=== PATIENT | female | born 1965 | race Caucasian/White ===

== ENCOUNTER 2023-08-28 20:15 | Emergency (ER) | payer MEDICARE ==
[~2023-08-28] VITALS: Ht 160 cm; Wt 109.9 kg
[2023-08-28 20:49] LABS: CLARITY,URINE TURBID (Clear); COLOR,URINE RED (Yellow); UA COLLECTION TYPE CLN CATCH MIDSTREAM
[2023-08-28 20:57] LABS: RBC,URINE TNTC /HPF (0-2)
[2023-08-28 20:58] LABS: BACTERIA,URINE NONE SEEN /HPF (Neg); SQUAMOUS EPITHELIAL CELL,UR FEW /LPF (FEW)
[2023-08-28 21:43] LABS: INR 0.9 INR; PROTHROMBIN TIME 9.8 SECONDS (9.0-12.0)
[2023-08-28 21:48] LABS: ALANINE AMINOTRANSFERASE 20 U/L (12-78); ALBUMIN 3.4 G/DL (3.4-5.0); ALKALINE PHOSPHATASE 59 IU/L (46-116); ANION GAP 6 (8-16); ASPARTATE AMINO TRANSFERASE 18 U/L (10-37); BILIRUBIN,TOTAL 0.3 MG/DL (0.1-1.0); BLOOD UREA NITROGEN 20 MG/DL (7-18); BUN/CREATININE RATIO 24.7 (10.0-20.0); CHLORIDE 104 MMOL/L (99-107); CREATININE 0.81 MG/DL (0.40-0.90); GLUCOSE 98 MG/DL (70-104); LIPASE 21 U/L (16-77); SODIUM 141 MMOL/L (135-145); TOTAL CARBON DIOXIDE 31.2 MMOL/L (24-32); TOTAL PROTEIN 6.9 G/DL (6.4-8.2); eCRCL 64 ML/MIN; eGFR 73 ML/MIN
[2023-08-28 21:52] LABS: BASOPHILS % (AUTO) 0.3 % (0-1); EOSINOPHILS # (AUTO) 0.2 X10'3 (0-0.9); EOSINOPHILS % (AUTO) 2.6 % (0-6); HEMATOCRIT 39.1 % (35.0-45.0); HEMOGLOBIN 13.1 g/dl (12.0-16.0); LYMPHOCYTES # (AUTO) 3.2 X10'3 (1.1-4.8); LYMPHOCYTES % (AUTO) 34.3 % (21-51); MEAN CORPUSCULAR HGB CONC 33.6 g/dL (33.0-36.5); MEAN CORPUSCULAR VOLUME 92.3 FL (78-98); MEAN PLATELET VOLUME 8.1 FL (7.4-10.4); MONOCYTES # (AUTO) 0.7 X10'3 (0-0.9); MONOCYTES % (AUTO) 7.5 % (2-12); NEUTROPHILS # (AUTO) 5.2 X10'3 (1.8-7.7); NEUTROPHILS % (AUTO) 55.3 % (42-75); PLATELET COUNT 393 X10'3 (140-440); RED BLOOD COUNT 4.24 X10'6 (4.20-5.60); RED CELL DISTRIBUTION WIDTH 14.5 % (11.5-14.5); WHITE BLOOD COUNT 9.4 X10'3 (4.5-11.0)
[2023-08-28] MEDS ORDERED: FLO0.4C PO (22:40)
[2023-08-28] MEDS ORDERED: ONDA-245 PO (22:40)
[2023-08-28] MEDS ORDERED: CEPH-585 PO (22:40)
[2023-08-28] MEDS: CefTRIAXone 1000mg IM Kit (w/lidocaine diluent) IM ONE (22:45)
[2023-08-28 22:52] VITALS: BP 151/99; PULSE 64; RESP 17; TEMP 98; O2SAT 96
== END 2023-08-28 22:55 | disposition home or self-care (01) ==
LOC: ER 20:15
DX: R31.9 Hematuria, unspecified (principal); N20.1 Calculus of ureter; Z88.1 Allergy status to other antibiotic agents; Z90.710 Acquired absence of both cervix and uterus
CPT/HCPCS: 36415; 74176; 80053; 81001; 83690; 85025; 85610; 87088; 96372; 99285; A6407; J0696

== ENCOUNTER 2024-12-15 21:05 | Emergency (ER) | payer MEDICARE ==
[~2024-12-15] VITALS: Ht 160 cm; Wt 104.0 kg
[~2024-12-15 21:05] MED LIST: ONDA-245 PO
[2024-12-15 21:38] VITALS: BP 155/85; PULSE 88; RESP 16; O2SAT 94
[2024-12-15] MEDS ORDERED: BUPR2TAB11 SL (23:36)
--- NOTE | 2024-12-15 23:40 | Physician Documentation ---
HPI ~ General Chief Complaint: Medication Request Stated Complaint: MED REQUEST Time Seen by MD: 23:17 Primary Medical Doctor: CHAVA MEDINA History of Present Illness HPI Comments Patient very pleasant 59-year-old female that presents to the emergency department for medication refill. Patient is a local primary care provider that prescribes her medication. Patient reports that she has seen at the branch every and feels her medications there. Patient reports that she did not fill her medication in time in the branch area are closed on the weekend. Patient also reports that there is a holiday coming up on Wednesday that we will cause an extended delay in her getting her medication. We will prescribe a short course of the patient's medication have her follow up with the primary care provider for additional medications or fill her existing prescription as prescribed by her primary care provider. Other symptoms reported at this time. Medication Reconciliation Allergies: Coded Allergies: tetracycline (Unverified Allergy, Unknown, 08/28/23) Scheduled Ondansetron 8mg ODT (Ondansetron Odt), 1 TAB PO Q6H Past Medical History Past Medical History: No Pertinent History Past Surgical History: hysterectomy Alcohol Use: None Drug Use: none Lives with: Family Lives In: Home Occupation: employed Review of Systems ROS As stated above in the HPI, otherwise all systems are reviewed and negative. Physical Exam Physical Exam Vital Signs: Temperature: 98.3, Heart Rate: 88, Respiratory Rate: 16, BP: 155/85, Pulse Oximetry: 94, Weight: 104.000 Physical Exam VITALS: Reviewed and as above. GENERAL: Alert, no apparent distress. HEENT: Normocephalic, atraumatic, PERRL, EOMI, dry mucosa, no erythema RESPIRATORY: Lungs clear, normal breath sounds, no respiratory distress. CHEST: No accessory muscle use, no retractions CV: Regular rate, rhythm, no edema, no murmur, No: JVD GI: Soft, non-tender, bowels sounds present, no rebound, guarding, or rigidity BACK: No CVA tenderness, or swelling MUSCULOSKELETAL No deformities, no edema SKIN: Warm and dry, no rash NEURO: Oriented x4, No motor or sensory deficit PSYCH: Normal mood and affect, no agitation Progress Results/Orders Results/Orders Vital Signs 12/15/24 21:38 Temp 98.3 Pulse 88 Resp 16 B/P (MAP) 155/85 Pulse Ox 94 Medical Decision Making Additional information obtaine: other Findings Medication refill. Patient has been provided education regarding this medication in the need to follow up with her primary care provider. Patient will return to the emergency department if she has any additional needs. Differential Dx:Considerations: Include: Adverse circumstances, Economic, Psychosocial, Medical services unavail., Medication refill, Medication non- compliance, Other Departure Disposition: 01 HOME / SELF CARE / HOMELESS Impression: Primary Impression: Medication refill Condition: Stable Discharge Instructions: Medicine Refill at the Emergency Department Referrals: NO PRIMARY CARE PROVIDER (PCP) Prescriptions Buprenorphine Hcl (Buprenorphine Hcl) 2 Mg Tab.subl 1 TAB SL Q12H PRN PRN for pain for 10 Days, #20 TAB Prov: REBECCA CASTILLO 12/15/24 Education Educated: Patient Educated regarding: diagnosis, treatment, need for follow up Signature Scribe Signature: A Attestation: Scribed for Rebecca Castillo by BEBETO Josue . 12/15/24 23:41 REBECCA CASTILLO Dec 15, 2024 23:40
[2024-12-15 23:47] VITALS: TEMP 98.3
[2024-12-15] MEDS: buprenorphine/naloxone 2-0.5mg sublingual tablet SL SCH (23:56)
== END 2024-12-16 | disposition home or self-care (01) ==
LOC: ER 21:05
DX: Z76.0 Encounter for issue of repeat prescription (principal); F11.90 Opioid use, unspecified, uncomplicated; Z90.710 Acquired absence of both cervix and uterus; Z88.1 Allergy status to other antibiotic agents; Z79.899 Other long term (current) drug therapy
CPT/HCPCS: 99283

== ENCOUNTER 2024-12-16 13:01 | Emergency (ER) | payer MEDICARE ==
[~2024-12-16] VITALS: Ht 160 cm; Wt 110.1 kg
[~2024-12-16 13:01] MED LIST changes: +BUPR2TAB11 SL
[2024-12-16 13:24] VITALS: TEMP 97
--- NOTE | 2024-12-16 14:18 | Physician Documentation ---
HPI ~ General Chief Complaint: Medication Request Stated Complaint: MED REQUEST Time Seen by MD: 14:08 OK to notify your PCP?: Yes Primary Medical Doctor: CHAVA MEDINA Source: patient Mode of Arrival: POV Exam Limitations: no limitations History of Present Illness HPI Comments Patient returns for refill of buprenorphine medication. 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 She is requesting for us to give her 4 pills of her medication to get her through the weekend. Medication Reconciliation Allergies: Coded Allergies: tetracycline (Unverified Allergy, Unknown, 12/16/24) Scheduled Ondansetron 8mg ODT (Ondansetron Odt), 1 TAB PO Q6H Scheduled PRN Buprenorphine Hcl (Buprenorphine Hcl), 1 TAB SL Q12H PRN PRN for pain Past Medical History Past Medical History: No Pertinent History Past Surgical History: hysterectomy Alcohol Use: None Drug Use: none Lives with: Family Lives In: Home Occupation: employed Review of Systems All Other Systems at this time: Reviewed and Negative Physical Exam Physical Exam Vital Signs: RN Vital Signs have been reviewed: Yes, Temperature: 97.0, Source: Temporal, Heart Rate: 87, Respiratory Rate: 20, BP: 130/86, Pulse Oximetry: 93, Weight: 110.100 Oxygen Flow Rate: 0 Pulse Oximetry Reflects: adequate oxygenation Physical Exam General: Alert, no distress. HEENT: No injection, moist mucous membranes. Neck: Full range of motion. Respiratory: No respiratory distress, equal chest rise and fall. Chest: No accessory muscle use. Cardiovascular: Regular rate and rhythm. Gastrointestinal: Nondistended. Extremities: Normal range of motion, no deformity. Neurologic: Oriented x4. Psychiatric: Normal mood and affect. Skin: Normal color, warm and dry. Progress Results/Orders Results/Orders Vital Signs 12/16/24 13:24 Temp 97.0 Pulse 87 Resp 20 B/P (MAP) 130/86 Pulse Ox 93 O2 Flow Rate 0 Medical Decision Making Additional information obtaine: old records Findings We discussed that we do not have pharmacy dispensing privileges and we are unable to dispense any medication especially controlled substance. I discussed that I would be willing to give her a 1 time dose while she is here in the department but unfortunately I can not give her any more doses to get her through the weekend. We also discussed that even if I prescribed to a different pharmacy all pharmacies are linked and will not fill this prescription due to her normal pharmacy already filling it. She understands and agrees the plan. Differential Dx:Considerations: Include: Adverse circumstances, Medical services unavail., Medication refill Departure Disposition: HOME / SELF CARE / HOMELESS Impression: Primary Impression: Medication refill Additional Impression: Pain Condition: Stable Discharge Instructions: Medicine Refill at the Emergency Department Additional Instructions: As discussed we are unable to dispense medication from our pharmacy to help get you through the weekend. We can give you 1 time dose while you were here. Referrals: NO PRIMARY CARE PROVIDER (PCP) Education Educated: Patient, Family Educated regarding: diagnosis, treatment, prognosis, need for follow up Additional Comment Medical Screen Exam This patient recieved a medical screening examination. After reviewing the individual's medical complaints with presenting symptoms and performing an appropriate physical examination, it was determined that no immediate life- threatening emergency medical condition is present. This individual is also not a women having contractions. Signature Scribe Signature: . Attestation: Scribed for Katiuska Martin Cost Recovery Technician by Katiuska Jama NP . 12/16/24 14:21 Parts of this note were created using [employer] voice recognition software program. While efforts were made to correct any mistakes made by this voice recognition software program, nonsensical phrases may remain in this note. In addition, there may be errors and syntax, grammar, content and spelling. KATIUSKA MARTIN [employer] Dec 16, 2024 14:18
[2024-12-16] MEDS: buprenorphine/naloxone 2-0.5mg sublingual tablet SL ONE (14:36)
[2024-12-16 14:42] VITALS: BP 121/80; PULSE 83; RESP 18; O2SAT 96
== END 2024-12-16 14:44 | disposition home or self-care (01) ==
LOC: ER 13:01
DX: R52 Pain, unspecified (principal); Z76.0 Encounter for issue of repeat prescription; Z90.710 Acquired absence of both cervix and uterus; Z79.899 Other long term (current) drug therapy; Z88.1 Allergy status to other antibiotic agents
CPT/HCPCS: 99283